=== PATIENT | female | born 1995 | race Caucasian/White ===

== ENCOUNTER 2018-05-02 15:10 | Emergency (ER) | payer OTHER ==
[~2018-05-02] VITALS: Ht 162.6 cm; Wt 72.8 kg
[2018-05-02] MEDS ORDERED: IBUPROFEN 200 MG TABLET PO ONE (16:00)
[2018-05-02] MEDS ORDERED: HYDROcodone/APAP 5/325 TABLET PO ONE (16:00)
[2018-05-02] MEDS ORDERED: HYDROcodone/APAP 5/325 TABLET ONE (16:18)
[2018-05-02] MEDS ORDERED: IBUPROFEN 200 MG TABLET ONE (16:18)
[2018-05-02 17:47] VITALS: BP 132/82
== END 2018-05-02 18:03 | disposition home or self-care (01) ==
LOC: ED 17:58
DX: S06.0X9A Concussion with loss of consciousness of unspecified duration, initial encounter (principal); S13.4XXA Sprain of ligaments of cervical spine, initial encounter; S23.3XXA Sprain of ligaments of thoracic spine, initial encounter; S33.5XXA Sprain of ligaments of lumbar spine, initial encounter; R51 Headache; V43.03XA Car driver injured in collision with pick-up truck in nontraffic accident, initial encounter; Y93.89 Activity, other specified; Y99.8 Other external cause status; Y92.410 Unspecified street and highway as the place of occurrence of the external cause
CPT/HCPCS: 70450; 72072; 72110; 72125; 99284

== ENCOUNTER 2019-10-14 22:23 | Emergency (ER) | payer OTHER ==
[~2019-10-14] VITALS: Ht 162.6 cm; Wt 75.1 kg
[2019-10-14] MEDS ORDERED: DEXAMETHASONE 4 MG TABLET PO ONE (23:00)
[2019-10-14] MEDS ORDERED: DEXAMETHASONE 4 MG TABLET ONE (23:08)
[2019-10-14 23:29] VITALS: BP 116/98
== END 2019-10-15 00:05 | disposition home or self-care (01) ==
LOC: ED 23:03
DX: R05 Cough (principal); R06.00 Dyspnea, unspecified; J02.9 Acute pharyngitis, unspecified
CPT/HCPCS: 71045; 99283